=== PATIENT | female | born 1995 | race Caucasian/White ===

== ENCOUNTER 2017-02-22 11:34 | Emergency (ER) | payer OTHER ==
[2017-02-22 11:43] VITALS: PULSE 78; TEMP 98.4
--- NOTE | 2017-02-22 12:16 | EDPHY ---
H & P Time Seen by Provider: 02/22/17 11:50 HPI/ROS: CHIEF COMPLAINT: Right pelvic pain, vaginal bleeding HISTORY OF PRESENT ILLNESS: 21-year-old female presents to the emergency department by private vehicle complaining of right lower quadrant abdominal pain and vaginal bleeding. Symptoms started 2 days ago. She initially had some mild spotting 2 days ago and now has had more heavier bleeding. 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 Her last normal menstrual period was 1 and half weeks ago. She denies . She does take oral contraceptive pills and has been taking these pills as directed for several years. Denies urinary symptoms. Denies reported trauma. Denies chest pain or difficulty breathing. REVIEW OF SYSTEMS: Constitutional: No fever, no chills. Eyes: No double or blurry vision. ENT: No sore throat. Respiratory: No cough, no shortness of breath. Cardiac: No chest pain. Gastrointestinal: Right lower quadrant abdominal pain. No vomiting or diarrhea Genitourinary: Vaginal bleeding as above. No dysuria. Musculoskeletal: No neck or back pain. Skin: No rashes. Neurological: No headache. Past Medical/Surgical History: Negative Social History: Single, [employer] student Smoking Status: Never smoked Physical Exam: General Appearance: Alert, no distress. Afebrile. No apparent distress. Eyes: Pupils equal and round. Extraocular motions are all intact. ENT: Mouth: Mucous membranes moist. Respiratory: No wheezing, rhonchi, or rales, lungs are clear to auscultation. Cardiovascular: Regular rate and rhythm. Gastrointestinal: Abdomen is soft. She has tenderness with palpation in the right groin and lower pelvic area. Nontender over McBurney's point. No CVA tenderness bilaterally. No rebound, guarding or masses noted. Neurological: Alert and oriented x 3, cranial nerves II through XII grossly intact Skin: Warm and dry, no rashes. Musculoskeletal: Nontender to palpate along the cervical, thoracic or lumbar spine. Neck is supple. Extremities: Full range of motion and no peripheral edema. Psychiatric: Patient is oriented X 3, there is no agitation. Constitutional: Initial Vital Signs Temperature (C) 36.9 C 02/22/17 11:40 Heart Rate 78 02/22/17 11:40 Respiratory Rate 20 02/22/17 11:40 Blood Pressure 125/80 H 02/22/17 11:40 O2 Sat (%) 97 02/22/17 11:40 O2 Delivery Mode Room Air Allergies/Adverse Reactions: No Known Allergies Allergy (Unverified 02/22/17 11:40) Home Medications: Medication Instructions Recorded Bcp 02/22/17 Medical Decision Making - Diagnostics Imaging Results: Imaging Impressions Pelvic/Renal Ultrasound 02/22/17 12:12 Impression: 1. Normal pelvic ultrasound. There is a small amount of fluid within the endometrial canal as well as in the cul-de-sac. Findings discussed with Svetlana Zavala PA-C at 13:46 hour, 02/22/2017. Imaging: Discussed imaging studies w/ manager call center Radiologist ED Course/Re-evaluation: 21-year-old female presents to the emergency department with spotting and right lower pelvic pain. Pelvic ultrasound was unremarkable. Laboratory studies are unremarkable. I doubt this patient has acute appendicitis. She has no pain with palpation at McBurney's point. She describes the pain is very low right pelvic pain. GC chlamydia be a dirty urine is pending. The patient will call for the results of this. She does not think that she has a sexually transmitted infection. I doubt PID. The patient has a scheduled appointment with warned her to discuss alternative contraceptive therapy. She was also given name of OBGYN on-call. She will return if she develops recurring bleeding, worsening pain, or if she feels worse in any way. Differential Diagnosis: Including but not limited to intrauterine , ectopic , ovarian cyst, ovarian torsion, urinary tract infection, pyelonephritis - Data Points Laboratory Results: Laboratory Results 02/22/17 12:20 02/22/17 12:20 02/22/17 02/22/17 02/22/17 16:30 12:20 12:20 WBC RBC Hgb Hct MCV MCH MCHC RDW Plt Count MPV Neut % (Auto) Lymph % (Auto) Alpine % (Auto) Eos % (Auto) Baso % (Auto) Nucleat RBC Rel Count Absolute Neuts (auto) Absolute Lymphs (auto) Absolute Monos (auto) Absolute Eos (auto) Absolute Basos (auto) Absolute Nucleated RBC Immature Gran % Immature Gran # Sodium 138 mEq/L mEq/L (134-144) Potassium 4.4 mEq/L mEq/L (3.5-5.2) Chloride 104 mEq/L mEq/L (97-110) Carbon Dioxide 23 mEq/l mEq/l (22-31) Anion Gap 11 mEq/L mEq/L (8-16) BUN 14 mg/dL mg/dL (7-23) Creatinine 0.8 mg/dL mg/dL (0.6-1.0) Estimated GFR > 60 Glucose 87 mg/dL mg/dL (70-100) Calcium 9.5 mg/dL mg/dL (8.5-10.4) Beta HCG, Qual NEGATIVE C.trachomatis RNA (TMA) Pending N.gonorrhoeae RNA (TMA) Pending 02/22/17 12:20 WBC 3.73 10^3/uL L 10^3/uL (3.80-9.50) RBC 4.56 10^6/uL 10^6/uL (4.18-5.33) Hgb 13.7 g/dL g/dL (12.6-16.3) Hct 40.8 % % (38.0-47.0) MCV 89.5 fL fL (81.5-99.8) MCH 30.0 pg pg (27.9-34.1) MCHC 33.6 g/dL g/dL (32.4-36.7) RDW 12.3 % % (11.5-15.2) Plt Count 201 10^3/uL 10^3/uL (150-400) MPV 12.4 fL H fL (8.7-11.7) Neut % (Auto) 50.4 % % (39.3-74.2) Lymph % (Auto) 40.5 % % (15.0-45.0) Alpine % (Auto) 7.5 % % (4.5-13.0) Eos % (Auto) 0.8 % % (0.6-7.6) Baso % (Auto) 0.5 % % (0.3-1.7) Nucleat RBC Rel Count 0.0 % % (0.0-0.2) Absolute Neuts (auto) 1.88 10^3/uL 10^3/uL (1.70-6.50) Absolute Lymphs (auto) 1.51 10^3/uL 10^3/uL (1.00-3.00) Absolute Monos (auto) 0.28 10^3/uL L 10^3/uL (0.30-0.80) Absolute Eos (auto) 0.03 10^3/uL 10^3/uL (0.03-0.40) Absolute Basos (auto) 0.02 10^3/uL 10^3/uL (0.02-0.10) Absolute Nucleated RBC 0.00 10^3/uL 10^3/uL (0-0.01) Immature Gran % 0.3 % % (0.0-1.1) Immature Gran # 0.01 10^3/uL 10^3/uL (0.00-0.10) Sodium Potassium Chloride Carbon Dioxide Anion Gap BUN Creatinine Estimated GFR Glucose Calcium Beta HCG, Qual C.trachomatis RNA (TMA) N.gonorrhoeae RNA (TMA) Departure - Departure Disposition: Home, Routine, Self-Care Clinical Impression: Dysfunctional uterine bleeding, Pain in female pelvis Condition: Good Instructions: Dysfunctional Uterine Bleeding (ED), Acute Abdominal Pain (ED) Additional Instructions: Follow-up with OBGYN as discussed. Return if you developed worsening vaginal bleeding or your soaking more than 1 pad per hour. Abdominal Pain: Return to the Emergency Department immediately for increasing pain, fever, vomiting, or if not completely better in 8-12 hours. Referrals: Conchita Vicente MD [Medical Doctor] - 2-3 days without fail (OBGYN on-call) Stand Alone Forms: School Excuse
[2017-02-22 12:35] LABS: % IMMATURE GRANULYOCYTES 0.3 % (0.0-1.1); ABSOLUTE IMMATURE GRANULOCYTES 0.01 10^3/uL (0.00-0.10); ADD DIFF? NO; ADD MORPH? NO; ADD SCAN? NO; ATYPICAL LYMPHOCYTE FLAG 30 (0-99); FRAGMENT RBC FLAG 0 (0-99); HEMATOCRIT 40.8 % (38.0-47.0); HEMOGLOBIN 13.7 g/dL (12.6-16.3); LEFT SHIFT FLG 0 (0-99); LIPEMIA HEMOLYSIS FLAG 80 (0-99); MEAN CELL HEMOGLOBIN CONCENTR. 33.6 g/dL (32.4-36.7); MEAN CELL VOLUME 89.5 fL (81.5-99.8); MEAN PLATELET VOLUME 12.4 fL (8.7-11.7); PLATELET CLUMPS FLAG 10 (0-99); PLATELET COUNT 201 10^3/uL (150-400); RED BLOOD CELL COUNT 4.56 10^6/uL (4.18-5.33); RED CELL DISTRIBUTION WIDTH 12.3 % (11.5-15.2)
[2017-02-22 13:11] LABS: ANION GAP 11 mEq/L (8-16); CALCIUM 9.5 mg/dL (8.5-10.4); CARBON DIOXIDE 23 mEq/l (22-31); CHLORIDE 104 mEq/L (97-110); CREATININE 0.8 mg/dL (0.6-1.0); GLOMERULAR FILTRATION RATE > 60; GLUCOSE 87 mg/dL (70-100); POTASSIUM 4.4 mEq/L (3.5-5.2); SODIUM 138 mEq/L (134-144)
[2017-02-22 14:44] VITALS: BP 102/67; RESP 14; O2SAT 99
[2017-02-23 15:11] LABS: CHLAMYDIA AMPLIFICATION GENPRB NEGATIVE (NEGATIVE)
== END 2017-02-22 14:35 | disposition home or self-care (01) ==
DX: N93.8 Other specified abnormal uterine and vaginal bleeding (principal); R10.2 Pelvic and perineal pain